=== PATIENT | female | born 1990 | race African-American/Black ===

== ENCOUNTER 2016-05-06 23:42 | Emergency (ER) | payer MEDICAID ==
[~2016-05-06] VITALS: Ht 152.4 cm; Wt 58.1 kg
[~2016-05-06 23:42] MED LIST: NITROFURANTOIN100 M2 ORAL; PHENAZOPYRIDIN200 MG ORAL; UNOBMED
[2016-05-07 00:15] VITALS: BP 126/72
[2016-05-07] MEDS ORDERED: PredniSONE 20mg tab ORAL ONE (00:15)
[2016-05-07] MEDS ORDERED: LORazepam 1mg tab ORAL ONE (00:15)
[2016-05-07] MEDS ORDERED: Albuterol ud Inhalation HHN ONE (00:30)
[2016-05-07] MEDS ORDERED: Ipratropium 0.02% Inh Soln 2.5ml UD HHN ONE (00:30)
--- NOTE | 2016-05-07 00:42 | Emergency Room Report ---
History of Present Illness General Chief Complaint: Asthma Source: Patient Present Illness HPI This is a 25-year-old female with a history of asthma. Infrequent attack. She presents with chief complaint shortness of breath. Onset yesterday. Worse today. Had to use multiple inhalers. Denies any fever or chills. Denies any nausea vomiting. Coughing is nonproductive in nature. Worse with exertion. Better with treatment. Robinson shaky. Allergies: Coded Allergies: No Known Allergies (Unverified , 02/14/16) Patient History Past Medical History: see triage record, old chart reviewed, asthma Past Surgical History: none Pertinent Family History: none Social History: Denies: smoking Last Menstrual Period: mar Now: No Immunizations: other Reviewed Nursing Documentation: PMH: Agreed, PSxH: Agreed Nursing Documentation-PMH Hx Asthma: Yes - and sinus allergies Review of Systems Eye: Denies: blurred vision, eye pain ENT: Denies: ear pain, nose congestion, throat swelling Respiratory: Reports: cough, shortness of breath, wheezing Cardiovascular: Denies: chest pain, palpitations Gastrointestinal: Denies: abdominal pain, diarrhea, nausea, vomiting Musculoskeletal: Denies: back pain, joint pain Skin: Denies: rash Neurological: Denies: headache, numbness Endocrine: Denies: increased thirst, increased urine Hematologic/Lymphatic: Denies: easy bruising All Other Systems: negative except mentioned in HPI Physical Exam Vital Signs Date Time Temp Pulse Resp B/P Pulse Ox O2 Delivery O2 Flow Rate FiO2 05/06/16 23:47 99.7 113 24 126/72 100 Room Air vitals with low-grade fever and tachycardia Sp02 EP Interpretation: reviewed, normal General Appearance: well appearing, no apparent distress, alert Head: normocephalic, atraumatic Eyes: bilateral eye EOMI, bilateral eye PERRL ENT: hearing grossly normal, normal pharynx Neck: full range of motion, supple, no meningismus Respiratory: chest non-tender, wheezing Cardiovascular #1: regular rate, rhythm, no murmur Gastrointestinal: normal bowel sounds, non tender, no mass, no organomegaly, no bruit, non-distended Musculoskeletal: back normal, gait/station normal, normal range of motion Neurologic: alert, oriented x3 Psychiatric: anxious Skin: warm/dry Medical Decision Making Diagnostic Impression: Primary Impression: Asthma attack ER Course Patient presents with asthma exacerbation. Most likely a viral illness causing this. She is much better now. Lungs are clear. We'll discharge home. Last Vital Signs Date Time Temp Pulse Resp B/P Pulse Ox O2 Delivery O2 Flow Rate FiO2 05/07/16 00:36 112 24 Room Air 05/07/16 00:36 100 05/06/16 23:47 99.7 126/72 Status: improved Disposition: HOME, SELF-CARE Condition: Stable Scripts Prednisone* (PREDNISONE*) 20 Mg Tablet 60 MG ORAL DAILY, #12 TAB Prov: ZEV TUCKER M.D. 05/07/16 Albuterol Sulfate* (ALBUTEROL SULFATE MDI*) 8.5 Gm Hfa.aer.ad 2 PUFF INH Q4H Y for cough/wheezing, #1 EA 0 Refills Prov: ZEV TUCKER M.D. 05/07/16 Referrals: [facility]ERR[facility] (PCP) Patient Instructions: Asthma, Adult Additional Instructions: Stop smoking. Followup with your DrSen in 2 to 3 days. Return if symptom worsen. ZEV TUCKER M.D. May 07, 2016 00:42
[2016-05-07] MEDS ORDERED: PREDNISONE20 MG ORAL (01:13)
[2016-05-07] MEDS ORDERED: ALBUTEROL SULF8.5 GM INH (01:13)
[2016-05-07 01:15] VITALS: BP 128/75
[2016-05-07 01:45] VITALS: BP 128/75
== END 2016-05-07 01:45 | disposition home or self-care (01) ==
LOC: EMR 23:59
DX: J45.901 Unspecified asthma with (acute) exacerbation (principal)
CPT/HCPCS: 94640; 94664; 99283

== ENCOUNTER 2018-12-04 19:41 | Emergency (ER) | payer MEDICAID ==
[~2018-12-04] VITALS: Ht 152.4 cm; Wt 58.1 kg
[~2018-12-04 19:41] MED LIST changes: +ALBUTEROL SULF8.5 GM INH; +PREDNISONE20 MG ORAL
[2018-12-04 19:59] VITALS: BP 110/68
--- NOTE | 2018-12-04 20:00 | NUR ---
ED Nurse Note: Patient walked into ED c/o cough and congestion for the past 4 days. AAO x4, VSS at this time, skin is dry warm to touch. Denyed fevere at home.
--- NOTE | 2018-12-04 20:23 | Emergency Room Report ---
History of Present Illness General Chief Complaint: Upper Respiratory Illness Source: Patient Present Illness HPI 28-year-old female with no significant past medical history here complaining of 4 days of sore throat and cough and congestion. Patient is a heavy tobacco smoker. Reports she has a lot of phlegm. Denies fever and chills, chest pain shortness of breath. Denies headache and dizziness, nausea vomiting abdominal pain. Has not taken medication for symptom relief. Denies recent travel and sick contact. Her daughter also presents with 1 day of similar symptoms. However patient is a heavy tobacco smoker and possible bacterial infection likely. Patient appears stable with stable vital signs Allergies: Coded Allergies: No Known Allergies (Unverified , 02/14/16) Patient History Past Medical History: see triage record Past Surgical History: unable to obtain Pertinent Family History: none Social History: Reports: smoking - tobacco Last Menstrual Period: 10/31/18 Now: No Immunizations: UTD Reviewed Nursing Documentation: PMH: Agreed; PSxH: Agreed Nursing Documentation-PMH Past Medical History: No History, Except For Hx Asthma: Yes - and sinus allergies Review of Systems All Other Systems: negative except mentioned in HPI Physical Exam Vital Signs Date Time Temp Pulse Resp B/P (MAP) Pulse Ox O2 Delivery O2 Flow Rate FiO2 12/04/18 19:50 98.2 80 18 110/68 (82) 97 12/04/18 19:59 Room Air Sp02 EP Interpretation: reviewed, normal General Appearance: no apparent distress, alert, GCS 15, non-toxic Head: normocephalic, atraumatic Eyes: bilateral eye normal inspection, bilateral eye PERRL ENT: hearing grossly normal, no angioedema, normal voice, tonsillar swelling, pharyngeal erythema Neck: full range of motion, supple/symm/no masses Respiratory: chest non-tender, lungs clear, normal breath sounds, no rhonchi, no respiratory distress, no wheezing, speaking full sentences Cardiovascular #1: regular rate, rhythm, no edema, no murmur Gastrointestinal: normal bowel sounds, non tender, soft, non-distended, no guarding, no rebound Musculoskeletal: normal inspection, back normal Neurologic: alert, oriented x3, responsive, motor strength/tone normal, sensory intact, speech normal Psychiatric: judgement/insight normal, memory normal, mood/affect normal, no suicidal/homicidal ideation Skin: no rash Lymphatic: normal inspection, no adenopathy Medical Decision Making PA Attestation Diagnosis and treatment plans were reviewed and discussed with my supervising physician Dr. Carrasco Diagnostic Impression: Primary Impression: Pharyngitis ER Course 28-year-old female with no significant past medical history here complaining of 4 days of sore throat and cough and congestion. Patient is a heavy tobacco smoker. Reports she has a lot of phlegm. Denies fever and chills, chest pain shortness of breath. Denies headache and dizziness, nausea vomiting abdominal pain. Has not taken medication for symptom relief. Denies recent travel and sick contact. Her daughter also presents with 1 day of similar symptoms. However patient is a heavy tobacco smoker and possible bacterial infection likely. Patient appears stable with stable vital signs Ddx considered but are not limited to: strep pharyngitis, URI, tonsilitis, peritonsillar absacess, influneza Vital signs: are WNL, pt. is afebrile H&PE are most consistent with: Pharyngitis most likely bacterial due to patient smoking status ORDERS: Azithromycin, Phenergan ED INTERVENTIONS: None required at this time. DISCHARGE: At this time pt. is stable for d/c to home. Will provide printed patient care instructions, and any necessary prescriptions. Care plan and follow up instructions have been discussed with the patient prior to discharge. Last Vital Signs Date Time Temp Pulse Resp B/P (MAP) Pulse Ox O2 Delivery O2 Flow Rate FiO2 12/04/18 19:59 98.2 18 110/68 97 12/04/18 19:59 80 Room Air Disposition: HOME, SELF-CARE Condition: Stable Scripts Promethazine Hcl (PROMETHAZINE HCL*) 6.25 Mg/5 Ml Syrup 5 ML ORAL Q6H, #120 ML 0 Refills Prov: Renzo Shirley 12/04/18 Azithromycin* (ZITHROMAX*) 250 Mg Tablet 250 MG ORAL DAILY, #6 TAB 0 Refills Take two tables once daily for 1 day, then one tablet once daily for 4 days. Prov: Renzo Shirley 12/04/18 Patient Instructions: Pharyngitis, [id number] Additional Instructions: Take medication as directed follow-up with your primary care provider worsening symptoms return to the emergency room Renzo Shirley Dec 04, 2018 20:23
[2018-12-04] MEDS ORDERED: PROMETHAZI6.25 MG/1 ORAL (20:24)
[2018-12-04] MEDS ORDERED: ZITHROMAX250 MG ORAL (20:24)
[2018-12-04 20:30] VITALS: BP 110/68
--- NOTE | 2018-12-04 20:30 | NUR ---
ER DISCHARGE NOTE: Patient is cleared to be discharged per ERMD, pt is aox4, on room air, with stable vital signs. pt was given dc and prescription instructions, pt was able to verbalize understanding, pt id band removed. pt is able to ambulate with steady gait. pt took all belongings.
== END 2018-12-04 20:30 | disposition home or self-care (01) ==
LOC: EMR 20:15
DX: J02.9 Acute pharyngitis, unspecified (principal); F17.200 Nicotine dependence, unspecified, uncomplicated
CPT/HCPCS: 99282